=== PATIENT | male | born 1950 | race African-American/Black ===

== ENCOUNTER 2016-06-20 14:52 | Observation (INO) | payer MEDICARE, MEDICAID ==
[~2016-06-20] VITALS: Ht 180.3 cm; Wt 108.0 kg
[2016-06-20 16:31] LABS: BASOPHILS % 0.9 % (0.0-2.0); EOSINOPHILS % 1.2 % (0.0-5.0); HEMATOCRIT. 38.1 % (42.0-52.0); HEMOGLOBIN. 12.8 g/dL (14.0-18.0); MEAN CORPUSCULAR HEMOGLOBIN 29.4 pg (28.0-32.0); MEAN CORPUSCULAR HGB CONC 33.7 g/dL (31.0-37.0); MEAN CORPUSCULAR VOLUME 87.2 fL (80.0-94.0); MEAN PLATELET VOLUME 7.3 fl (7.4-10.4); MONOCYTES % 6.5 % (2.0-8.0); NEUTROPHILS % 69.4 % (40.0-76.0); PLATELET 185 x1000/uL (130-400); RED BLOOD CELL COUNT 4.37 mill/uL (4.7-6.1); RED CELL DISTRIBUTION WIDTH 13.4 % (11.6-14.6); WHITE BLOOD COUNT 5.3 x1000/uL (4.5-11.0)
[2016-06-20 16:43] LABS: ANION GAP 13; CALCIUM 8.4 mg/dL (8.5-10.1); CARBON DIOXIDE 25 mEq/L (21-32); CHLORIDE 105 mEq/L (98-107); INDEX HEMOLYSI 1 (1-3); INDEX ICTERIC 1 (1-4); INDEX LIPEMIC 1 (1-3); UREA NITROGEN BLOOD 12 mg/dL (7-21); eGFR > 60 mL/min (>60)
[2016-06-20 16:44] LABS: TROPONIN I 0.04 ng/mL (0.00-0.04)
[2016-06-20 16:45] LABS: NT PRO B-TYPE NATRIURETIC PEP 513 pg/mL (5-125)
[2016-06-20 16:53] LABS: *AMPHETAMINES SCREEN URINE NEGATIVE (NEGATIVE); *BARBITURATES SCREEN URINE NEGATIVE (NEGATIVE); *BENZODIAZEPINES SCREEN URINE NEGATIVE (NEGATIVE); *COCAINE SCREEN URINE NEGATIVE (NEGATIVE); CANNABINOID URINE SCREEN NEGATIVE (NEGATIVE); ECSTASY MDMA SCREEN URINE NEGATIVE (NEGATIVE); METHADONE URINE SCREEN NEGATIVE (NEGATIVE); OPIATES URINE SCREEN PRESUMTIVE POSITIVE (NEGATIVE); PHENCYCLIDINE URINE SCREEN NEGATIVE (NEGATIVE)
[2016-06-20 17:05] LABS: PROTHROMBIN TIME 10.7 sec
[2016-06-20] MEDS ORDERED: MECLIZINE 25MG TABLET PO ONE (17:30)
[2016-06-20] MEDS ORDERED: CLONIDINE 0.1MG TABLET PO PRN (21:30)
[2016-06-20] MEDS ORDERED: AMLODIPINE 5MG TABLET PO NR (21:30)
[2016-06-20] MEDS ORDERED: ACETAMINOPHEN 325MG TABLET PO PRN (21:30)
[2016-06-20] MEDS ORDERED: DOCUSATE SODIUM 100MG CAPSULE PO PRN (21:30)
[2016-06-20 21:40] VITALS: BP 143/86
[2016-06-20] MEDS ORDERED: TEMAZEPAM 15MG CAPSULE PO PRN (21:45)
[2016-06-21] VITALS: BP 144/76
[2016-06-21] MEDS ORDERED: OMEGA ACID (00:43)
[2016-06-21] MEDS ORDERED: BENA20TA3 PO (00:43)
[2016-06-21] MEDS ORDERED: ATOR20TA PO (00:43)
[2016-06-21] MEDS ORDERED: METF500T4 PO (00:43)
[2016-06-21] MEDS ORDERED: DEXTROSE 50% WATER 50ML SYRINGE IV PRN (01:00)
[2016-06-21 04:00] VITALS: BP 153/74
[2016-06-21 06:08] LABS: TROPONIN I 0.05 ng/mL (0.00-0.04)
[2016-06-21] MEDS: BLOOD SUGAR DIAGNOSTIC STRIP TEST SCH ×3 (06:31→12:27)
[2016-06-21] MEDS ORDERED: METFORMIN HCL 500MG TABLET PO SCH (07:50)
[2016-06-21] MEDS: INSULIN LISPRO 100 UNITS/ML SUBCUT SCH ×2 (07:50→12:27)
[2016-06-21 08:00] VITALS: BP 142/87
[2016-06-21] MEDS ORDERED: AMLODIPINE 5MG TABLET PO SCH (09:00)
[2016-06-21] MEDS ORDERED: ENOXAPARIN 30MG/0.3ML SYR SUBCUT SCH (09:00)
[2016-06-21 12:00] VITALS: BP 141/81
[2016-06-21 15:51] VITALS: BP 138/80
[2016-06-21 15:56] VITALS: BP 138/80
[2016-06-21] MEDS ORDERED: ATORVASTATIN CALCIUM 20MG TABLET PO SCH (21:00)
== END 2016-06-21 17:00 | disposition home or self-care (01) ==
LOC: ER 16:42 → 6WST 18:07 → INTOOBSV 18:07
PROVIDERS: ADMIT Internal Medicine Pulmonary Disease; ATTEND Internal Medicine Pulmonary Disease
DX: R42 Dizziness and giddiness (principal); R94.31 Abnormal electrocardiogram [ECG] [EKG]; E11.9 Type 2 diabetes mellitus without complications; E78.1 Pure hyperglyceridemia; I11.9 Hypertensive heart disease without heart failure; I51.7 Cardiomegaly; E78.00 Pure hypercholesterolemia, unspecified; Z87.891 Personal history of nicotine dependence; Z93.3 Colostomy status
CPT/HCPCS: 36415; 70450; 71010; 80048; 80061; 80305; 82962; 83880; 84484; 85025; 85610; 93005; 96372; 99285; G0378; J1650; J8597

== ENCOUNTER 2022-09-24 22:59 | Emergency (ER) | payer MEDICARE, MEDICAID ==
[~2022-09-24] VITALS: Ht 180.3 cm; Wt 87.0 kg
[~2022-09-24 22:59] MED LIST: ATOR20TA PO; BENA-8 PO; METF-414 PO; OMEGA ACID
[2022-09-24 23:05] VITALS: TEMP 98.1; O2SAT 100
[2022-09-24] MEDS ORDERED: SODIUM CHLORIDE 0.9% 1,000 ML IV ONE (23:30)
[2022-09-24 23:41] LABS: BASOPHILS % 0.8 % (0.0-2.0); EOSINOPHILS % 5.3 % (0.0-5.0); HEMATOCRIT. 41.6 % (42.0-52.0); HEMOGLOBIN. 13.6 g/dL (14.0-18.0); LYMPHOCYTES % 33.4 % (20.0-50.0); MEAN CORPUSCULAR HEMOGLOBIN 29.2 pg (28.0-32.0); MEAN CORPUSCULAR VOLUME 89.4 fL (80.0-94.0); MEAN PLATELET VOLUME 7.5 fl (7.4-10.4); MONOCYTES % 10.8 % (2.0-8.0); NEUTROPHILS % 49.7 % (40.0-76.0); PLATELET 186 x1000/uL (130-400); RED BLOOD CELL COUNT 4.65 mill/uL (4.7-6.1); RED CELL DISTRIBUTION WIDTH 13.7 % (11.6-14.6)
[2022-09-24 23:45] LABS: CHLORIDE 108 mEq/L (98-107)
[2022-09-25 00:24] LABS: CLARITY URINE CLEAR (CLEAR); COLOR URINE YELLOW (YELLOW); KETONES URINE NEGATIVE (NEGATIVE); LEUKOCYTE ESTERASE URINE NEGATIVE (NEGATIVE); NITRITE URINE NEGATIVE (NEGATIVE); OCCULT BLOOD URINE NEGATIVE (NEGATIVE); PROTEIN URINE NEGATIVE (NEGATIVE); SPECIFIC GRAVITY URINE 1.016 (1.005-1.030); UROBILINOGEN URINE 0.2 E.U./dL (0.2-1.0)
[2022-09-25 00:43] LABS: *AMPHETAMINES SCREEN URINE NEGATIVE (NEGATIVE); *BARBITURATES SCREEN URINE NEGATIVE (NEGATIVE); *BENZODIAZEPINES SCREEN URINE NEGATIVE (NEGATIVE); *COCAINE SCREEN URINE NEGATIVE (NEGATIVE); CANNABINOID URINE SCREEN PRESUMTIVE POSITIVE (NEGATIVE); METHADONE URINE SCREEN NEGATIVE (NEGATIVE); OPIATES URINE SCREEN NEGATIVE (NEGATIVE); PHENCYCLIDINE URINE SCREEN NEGATIVE (NEGATIVE)
[2022-09-25 02:40] VITALS: BP 123/69; PULSE 66; RESP 17
== END 2022-09-25 02:43 | disposition home or self-care (01) ==
LOC: ER 22:59
DX: R42 Dizziness and giddiness (principal); E11.9 Type 2 diabetes mellitus without complications; E78.00 Pure hypercholesterolemia, unspecified; I10 Essential (primary) hypertension
CPT/HCPCS: 99285; 96360; 71045; 80053; 80305; 83880; 85025; 84484; 36415; 81003; 70450; J7030